=== PATIENT | male | born 1950 | race Caucasian/White ===

== ENCOUNTER 2016-12-09 18:35 | Inpatient (IN) ==
--- NOTE | 2016-12-09 19:09 | PROVIDER DOCUMENTATION ---
HPI-Respiratory General - General Chief Complaint: Cough Stated Complaint: SOB Time Seen by Provider: 12/09/16 18:56 Source: patient Allergies/Adverse Reactions: Patient Allergies Allergy/AdvReac Type Severity Reaction Status Date / Time No Known Allergies Allergy Verified 12/09/16 18:51 Home Medications: Home Medication List Medication Instructions Recorded Confirmed Last Taken Type Aspirin 81 tab PO DAILY 12/10/16 12/10/16 Unknown History Celecoxib [Celebrex] 200 mg PO BID 12/10/16 12/10/16 Unknown History Lisinopril 20 tab PO DAILY 12/10/16 12/10/16 Unknown History Simvastatin 10 tab PO DAILY PRN 12/10/16 12/10/16 Unknown History - History of Present Illness-Resp Nature of Presenting Problem: Pt is a 66 y/o male c chief complaint of cough and shortness of breath x 2 weeks. He was seen at an urgent care today and advised to go to the ER. Pt states his cough is worse in the morning and has become progressively worse. Pt has a h/o RA, HTN, CVA, HLD. Pt smokes cigarettes 1ppd normally but has been unable to smoke in the past 2 weeks due to SOB. Pt has had unintentional weight loss of 25lbs in the past month. Pt states he has been feeling fatigued. His shortness of breath improves when he sits down and relaxes. Review of Systems - Adult - REVIEW OF SYSTEMS - ADULT Constitutional: reports: fatique. denies: chills, fever Eyes: reports: no symptoms reported. denies: blurred vision, double vision Ears, Nose, Mouth & Throat: reports: no symptoms reported. denies: ear pain, nose pain, throat pain Cardiovascular: reports: no symptoms reported. denies: chest pain, orthopnea Respiratory: reports: cough, shortness of breath. denies: hemoptysis, pleurisy Gastrointestinal: reports: no symptoms reported. denies: abdominal pain, nausea , rectal bleeding Genitourinary: reports: no symptoms reported. denies: frequent UTI's, hematuria Musculoskeletal: reports: no symptoms reported. denies: bone pain, joint pain, muscle weakness Integumentary: reports: no symptoms reported. denies: itching, rash Neurological: reports: no symptoms reported. denies: numbness, paresthesia Psychiatric: reports: no symptoms reported. denies: anxiety, emotional problems Endocrine: reports: no symptoms reported. denies: cold intolerance, heat intolerance Hematologic/Lymphatic: reports: no symptoms reported. denies: blood clots, low blood count Allergic/Immunologic: reports: no symptoms reported. denies: allergic reactions , food allergy All Other Systems: Reviewed and Negative Past History - Adult - PAST MEDICAL HISTORY-ADULT Review of Records: reports: Old Records Reviewed, Nursing Assessment Review, Medications Reviewed, Social history reviewed & non-contributory. Major Childhood Illnesses: reports: denies history Cardiovascular: reports: denies history Respiratory: reports: denies history Gastrointestinal: reports: denies history Obstetrical/Gynecological: reports: denies history Genitourinary: reports: denies history Musculoskeletal: reports: denies history Neurological: reports: denies history Endocrine/Immune: reports: denies history Other Conditions: reports: denies history - FAMILY HISTORY Family History: reviewed, not pertinent Physical Exam-General - PHYSICAL EXAM-ADULT Initial Vital Signs Reviewed: Yes - CONSTITUTIONAL General Appearance: appears well, alert, no apparent distress - EYES Eyes: PERRL/EOMI, pink conjunctivae - HEAD, EARS, NOSE, MOUTH & THROAT HENMT: normocephalic/atraumatic, moist mucous membranes, normal ENT inspection - RESPIRATORY Respiratory: chest non-tender, wheezing - CARDIOVASCULAR Cardiovascular: normal peripheral pulses, regular rate, rhythm, no edema - GASTROINTESTINAL (ABDOMEN) Abdominal Exam: normal bowel sounds, non tender, soft - GENITOURINARY Female Genitalia/Pelvic Exam: deferred - LYMPHATIC Lymphatic: no adenopathy - MUSCULOSKELETAL Back Exam: normal inspection, no CVA tenderness, no vertebral tenderness Extremity: normal range of motion, non-tender, normal gait - SKIN Integumentary: normal color, normal turgor, warm/dry - NEUROLOGIC Neurologic: grossly normal, no motor/sensory deficits - PSYCHIATRIC Psych/Mental Status: normal mood/affect, normal thought content, normal thought process, oriented x 3 Progress - PLAN OF CARE/RESULTS Progress/Plan/Lab Results: Orders Category Date Time Status ANGIOGRAM/PULMONARY ARTERIES [CT] Stat Exams 12/09/16 21:21 Taken CHEST-2 VIEWS [RAD] Stat Exams 12/09/16 18:56 Taken ABG [RESP] Routine Lab 12/09/16 20:05 Completed BLOOD CULTURE [BLDCUL] Stat Lab 12/09/16 22:45 Ordered CBC WITH ELECTRONIC DIFF [HEME] Stat Lab 12/09/16 19:35 Completed CK PROFILE [SP CHEM] Stat Lab 12/09/16 19:35 Completed COMPREHENSIVE METABOLIC PANEL [CHEM] Stat Lab 12/09/16 19:35 [address] D-DIMER PL [COAG] Stat Lab 12/09/16 19:35 Completed MAGNESIUM [CHEM] Stat Lab 12/09/16 19:35 Completed PRO B-NATRIURETIC PEPTIDE Stat Lab 12/09/16 19:35 Completed [address]IME WITH INR PL [COAG] Stat Lab 12/09/16 19:[address] [COAG] Stat Lab 12/09/16 19:35 Completed TROPONIN T Stat Lab 12/09/16 19:35 Completed Albuterol 2.5MG/Ipratrop 0.5MG [Duoneb (A & A)] Med 12/09/16 22:46 Discontinued 6 ml INH NOW ONE Dexamethasone [Decadron] Med 12/09/16 22:46 Discontinued 10 mg IV NOW ONE Levofloxacin 750 mg/D5w [Levaquin 750 mg/D5w] 150 ml Med 12/09/16 22:46 Active IV NOW Aerosol Treatments Routine Oth 12/09/16 22:46 Active Aerosol Treatments Stat Oth 12/09/16 22:46 Active EKG [EKG] Stat Ther 12/09/16 18:56 Draft Laboratory Tests 12/09/16 12/09/16 12/09/16 19:35 19:35 19:35 WBC RBC Hgb Hct MCV MCH MCHC RDW Std Deviation Plt Count MPV Immature Gran % (Auto) Neut % (Auto) Lymph % (Auto) Monona % (Auto) Eos % (Auto) Baso % (Auto) Immature Gran # (Auto) Neut # (Auto) Lymph # (Auto) Mon[place] # (Auto) Eos # (Auto) Baso # (Auto) PT INR APTT (Factor Assay) D-Dimer Specimen Type Sample Site pH pCO2 pO2 HCO3 Base Excess Oxyhemoglobin ABG O2 Sat (Calculated) ABG O2 Saturation ABG Carboxyhemoglobin ABG Methemoglobin Moisés Test A-a O2 Difference Total Hemoglobin Lactate Blood Gas Modality FiO2 % Sodium 134 L Potassium 5.2 H Chloride 98 Carbon Dioxide 22 L Anion Gap 14 BUN 13 Creatinine 0.9 Estimated GFR/1.73 m2 > 60 BUN/Creatinine Ratio 14 Glucose 99 Calculated Osmolality 268 Calcium 9.9 Magnesium 2.1 Total Bilirubin 0.40 AST 17 ALT 7 L Alkaline Phosphatase 75 Creatine Kinase 24 Troponin T < 0.010 [id number] Pept 461 H Total Protein 8.7 H Albumin 3.4 L Globulin 5.0 Albumin/Globulin Ratio 1.0 12/09/16 12/09/16 12/09/16 19:35 19:35 20:05 WBC 7.64 RBC 5.13 Hgb 14.4 Hct 44.7 MCV 87.1 MCH 28.1 MCHC 32.2 L RDW Std Deviation 14.8 H Plt Count 436 H MPV 8.5 Immature Gran % (Auto) 0.1 Neut % (Auto) 73.0 Lymph % (Auto) 16.2 L Monona % (Auto) 6.7 Eos % (Auto) 3.5 Baso % (Auto) 0.5 Immature Gran # (Auto) 0.01 Neut # (Auto) 5.57 Lymph # (Auto) 1.24 Monona # (Auto) 0.51 Eos # (Auto) 0.27 Baso # (Auto) 0.04 PT 15.0 INR 1.15 APTT (Factor Assay) 32.3 D-Dimer > 20.00 H Specimen Type ARTERIAL Sample Site L RADIAL pH 7.46 H pCO2 32 L pO2 52 L HCO3 24.4 Base Excess -0.3 Oxyhemoglobin 87.5 L* ABG O2 Sat (Calculated) 16.8 ABG O2 Saturation 91.0 L ABG Carboxyhemoglobin 2.70 H ABG Methemoglobin 1.1 Moisés Test YES A-a O2 Difference 58.0 Total Hemoglobin 13.7 Lactate 1.00 Blood Gas Modality ROOM AIR FiO2 % 21.0 Sodium Potassium Chloride Carbon Dioxide Anion Gap BUN Creatinine Estimated GFR/1.73 m2 BUN/Creatinine Ratio Glucose Calculated Osmolality Calcium Magnesium Total Bilirubin AST ALT Alkaline Phosphatase Creatine Kinase Troponin T [id number] Pept Total Protein Albumin Globulin Albumin/Globulin Ratio Vital Signs - 24 hr 12/09/16 12/09/16 18:36 22:15 Temperature 98.4 F Pulse Rate 115 H 117 H Respiratory 17 28 H Rate Blood Pressure 154/85 147/90 O2 Sat by Pulse 95 95 Oximetry - XRAY 1 XRAY Study: Chest Impression: Abnormal XRAY Interpretation: diffuse interstitial edema, fibrotic changes, multiple infiltrates - CT/MRI 1 CT Study: Thorax Impression: Abnormal (No PE, enlarged mediastinal nodes. Increased interstitial markings could be fibrosis, pneumonia, or a combo of the two, small L effusion - radiology report) - CONSULTS/PCP/HOSPITALIST Notification #1 *Consult/PCP/Hospitalist*: Dr. Mayen (Hospitalist) Time Discussed: 23:00 Reason/Comments: Admit. agree c orders Departure - Departure Time of Disposition Order: 22:46 DIAGNOSIS: Pulmonary fibrosis Pneumonia Qualifiers: Pneumonia type: due to unspecified organism Laterality: bilateral Lung location : unspecified part of lung Qualified Code(s): J18.9 - Pneumonia, unspecified organism Disposition: ADMITTED INPATIENT 09 Certified Medical Emergency: Emergent Condition: Stable Attestation - Physician/ TREY Attestation Patient care was provided by Advanced Practice Provider:: Yes Advanced Practice Provider:: Pantera Degroot Advanced Practice Provider documentation review:: The Mid-level provider documentation, treatment plan and medical decision making was reviewed by the physician who agrees with all treatment and medical decision making by the P.
[2016-12-09 19:41] LABS: MANUAL DIFF NEEDED? NO
[2016-12-09 19:44] LABS: BASO% 0.5 % (0.0-0.8); EOS# 0.27 X1000 (0.0-0.7); EOS% 3.5 % (0.0-10.0); HEMATOCRIT 44.7 % (42.0-52.0); HEMOGLOBIN 14.4 g/dL (14.0-18.0); IMM GRAN# 0.01 X1000 (0.0-0.04); IMM GRAN% 0.1 % (0.0-0.5); LYMPH# 1.24 X1000 (1.2-3.4); LYMPH% 16.2 % (20.5-51.1); MCH 28.1 PG (27-31); MCHC 32.2 g/dL (33-37); MCV 87.1 FL (81-99); MONO# 0.51 X1000 (0.11-0.59); MONO% 6.7 % (1.7-9.3); MPV 8.5 FL (7.4-10.4); PLT 436 X1000 (130-400); RBC 5.13 XMIL (4.7-6.1)
[2016-12-09 19:58] LABS: AGAP 14; ALBUMIN 3.4 g/dL (3.5-5.0); ALKALINE PHOSPHATASE 75 U/L (32-122); BUN 13 mg/dL (8-22); CALCIUM 9.9 mg/dL (8.8-10.2); CHLORIDE 98 mmol/L (98-107); CK PROFILE 24 U/L (24-204); COSMO 268; GOT 17 U/L (10-34); GPT 7 U/L (10-44); MAGNESIUM 2.1 mg/dL (1.5-2.7); POTASSIUM 5.2 mmol/L (3.5-5.1); SODIUM 134 mmol/L (136-145); TCO2 22 mmol/L (25-35); TOTAL PROTEIN 8.7 g/dL (6.3-8.3)
[2016-12-09 20:05] LABS: INR 1.15 (0.86-1.15); PTT PL 32.3 Seconds (22.6-43.9)
[2016-12-09 20:21] LABS: BE -0.3 mmoll (-3.0-3.0); BLOOD TYPE ARTERIAL; DRAW SITE L RADIAL; METHB 1.1 % (0.0-1.5); O2(CT) 16.8 mL/dL (15.0-23.0); PCO2(98.6) 32 mmHg (35-45); PO2(98.6) 52 mmHg (60-100); SAMPLE BLOOD; THB 13.7 g/dL (11.5-17.4); pH(98.6) 7.46 (7.35-7.45)
--- NOTE | 2016-12-09 20:22 | EKG Report ---
Test Performed on : 12/09/2016 8:05:42 PM Test Reason : CHEST PAIN Blood Pressure : / mmHG Vent. Rate : 112 BPM Atrial Rate : 112 BPM P-R Int : 148 ms QRS Dur : 096 ms QT Int : 330 ms P-R-T Axes : 031 -36 011 degrees QTc Int : 450 ms Sinus tachycardia. Left axis deviation Abnormal ECG No previous ECGs available Unconfirmed Result
[2016-12-09 20:24] LABS: ALLEN TEST YES; MODALITY ROOM AIR
[2016-12-09] MEDS ORDERED: DUONEB (A & A) INH ONE (22:46)
[2016-12-09] MEDS ORDERED: LEVAQUIN 750 MG/D5W 150 ML IV ONE (22:46)
[2016-12-09] MEDS ORDERED: DECADRON IV ONE (22:46)
[2016-12-10] MEDS: NS 1,000 ML IV SCH ×2 (01:07→21:01)
--- NOTE | 2016-12-10 01:08 | Diag Imaging Result Document ---
PROCEDURE NAME: ANGIOGRAM/PULMONARY ARTERIES - 12/09/2016 STUDY: CT chest with intravenous contrast. Motion degrades image quality. The heart is enlarged. There is a tiny left effusion. There are multiple enlarged mediastinal and hilar lymph nodes. No thoracic aortic aneurysm or dissection. Normal opacification of the pulmonary arteries and their proximal branches. The distal branches are poorly opacified. There are increased interstitial markings diffusely in the lungs with small peripheral cysts. IMPRESSION: 1. No pulmonary emboli identified. 2. Multiple enlarged mediastinal and hilar lymph nodes. 3. Increased interstitial markings which may represent fibrosis or pneumonia or a combination of the two. 4. Cardiomegaly with a small left effusion. A preliminary report was given at 10:12 p.m.
--- NOTE | 2016-12-10 07:46 | Diag Imaging Result Document ---
PROCEDURE NAME: CHEST-2 VIEWS - 12/09/2016 FRONTAL AND LATERAL CHEST, TWO VIEWS: FINDINGS: There are increased interstitial markings diffusely in both lungs. The findings are most pronounced in the periphery of the mid lungs and in the lung bases. Heart is borderline mildly prominent. Questionable tiny effusions. IMPRESSION: Diffuse increased interstitial markings likely represent a combination of fibrosis and pneumonia.
[2016-12-10] MEDS ORDERED: ZOFRAN IV PRN (13:48)
[2016-12-10] MEDS ORDERED: DUONEB (A & A) INH PRN (13:49)
[2016-12-10] MEDS: DUONEB (A & A) INH SCH ×3 (15:37→23:12)
--- NOTE | 2016-12-10 17:30 | Extremity Venous Study ---
PROCEDURE NAME: Venous U/S Bilateral Legs - 12/10/2016 BILATERAL LOWER EXTREMITY VENOUS DOPPLER ULTRASOUND: FINDINGS: RIGHT: There is good flow and compressibility in the veins of the right lower extremity. No thrombus. Normal augmentation. LEFT: There is good flow and compressibility in the veins of the left lower extremity. No thrombus. Normal augmentation. IMPRESSION: No evidence of deep venous thrombosis within either lower extremity.
[2016-12-10] MEDS: SOLU-MEDROL IV SCH ×2 (20:27→22:53)
[2016-12-10] MEDS: LEVAQUIN 750 MG/D5W 150 ML IV SCH (22:53)
[2016-12-11] MEDS: DUONEB (A & A) INH SCH ×5 (03:26→20:01)
[2016-12-11] MEDS: SOLU-MEDROL IV SCH ×3 (06:04→22:04)
[2016-12-11 06:49] LABS: HEMATOCRIT 38.1 % (42.0-52.0); HEMOGLOBIN 12.1 g/dL (14.0-18.0); MCH 27.8 PG (27-31); MCHC 31.8 g/dL (33-37); MCV 87.6 FL (81-99); MPV 9.1 FL (7.4-10.4); RBC 4.35 XMIL (4.7-6.1)
[2016-12-11 07:05] LABS: AGAP 13; BUN 15 mg/dL (8-22); CHLORIDE 98 mmol/L (98-107); COSMO 272; POTASSIUM 4.3 mmol/L (3.5-5.1); SODIUM 134 mmol/L (136-145); TCO2 24 mmol/L (25-35)
[2016-12-11] MEDS: ASPIRIN PO SCH (08:57)
[2016-12-11] MEDS: PRINIVIL PO SCH (08:57)
[2016-12-11] MEDS: LOVENOX SUBQ SCH (08:58)
[2016-12-11] MEDS: NS 1,000 ML IV SCH (13:03)
--- NOTE | 2016-12-11 13:14 | HISTORY AND PHYSICAL ---
CHIEF COMPLAINT: Cough, shortness of breath x2 weeks. HISTORY OF PRESENT ILLNESS: This is a 66-year-old male with a history of hypertension, CVA, high cholesterol, rheumatoid arthritis, hyperlipidemia, and continued nicotine use. He presented to the emergency room complaining of greater than 2 weeks of nonproductive cough and shortness of breath. He stated his cough is worse in the morning on 1st waking. Over the last week it has gotten progressively worse throughout the day. He also reports an unintentional weight loss of 25 pounds in the last month accompanying by general weakness and fatigue. He does state that his shortness of breath increases with movement and it does decrease somewhat when he rests. He denies any chest pain, palpitations, PND, or orthopnea. He denies any prior treatment. Chest x- ray revealed diffuse interstitial markings that likely represent a combination of fibrosis and pneumonia. He was found to have a D-dimer of 20. Therefore, a CTA pulmonary was performed which revealed no pulmonary emboli. Multiple enlarged mediastinal and hilar lymph nodes. Increased interstitial markings that may represent fibrosis or pneumonia or a combination of the 2. Cardiomegaly with a small effusion. Lower extremity Doppler was performed which revealed no evidence of DVT in either extremity. Blood cultures were obtained. He was given Levaquin in the emergency room and he was admitted for further evaluation and treatment. PAST MEDICAL HISTORY: Hypertension, prior CVA, hyperlipidemia, rheumatoid arthritis. PAST SURGICAL HISTORY: Denies. SOCIAL HISTORY: He smokes about a pack to 2 packs a day. He denies alcohol or illicit drug use. ALLERGIES: No known drug allergies. HOME MEDICATIONS: Aspirin 81 mg, simvastatin 10 daily, lisinopril 20, Celebrex 200 b.i.d. REVIEW OF SYSTEMS: A 14 point review of systems is discussed with patient with pertinent positives stated in the HPI. He denies chest pain, palpitations, syncope, dizziness, PND, orthopnea, change in vision, any fever, chills, night sweats, nausea, vomiting, diarrhea, constipation, black or bloody vomitus, black or bloody stools, hematuria, dysuria, frequency, urgency. PHYSICAL EXAMINATION: GENERAL: This is a 66-year-old male who comes in with 2 weeks of a cough that has increased over the past few days. VITAL SIGNS: Blood pressure is 120/68 with a heart rate of 90, respirations are 20, temperature is 97.9 degrees oral with oxygen saturations of 96 to 100% on 2 L. HEENT: Head is normocephalic, atraumatic. Pupils equal, round, react to light. EOMs are intact. Sclerae anicteric. Mucous membranes are moist. NECK: Supple. Trachea midline. CARDIOVASCULAR: Regular rate and rhythm. S1 and S2 appreciated. PULMONARY: He does have some scattered wheezing throughout with no increased work of breathing noted. Chest does rise and fall symmetrically with respiration. GASTROINTESTINAL: Abdomen is soft, nontender, nondistended. Bowel sounds in all 4 quadrants. BACK: No CVAT. No spine tenderness. MUSCULOSKELETAL: Good range of motion of joints. NEUROLOGIC: He is alert and oriented x3. EXTREMITIES: No clubbing, cyanosis, or edema. Pulses are palpable x4. Calves are nontender. DIAGNOSTICS: WBC is 7.6 with a hemoglobin of 14.4, hematocrit 44.7, and platelets of 436,000. D- dimer is greater than 20. Sodium is 134, potassium 5.2, BUN 13, creatinine 0.9, with a glucose of 99. Troponin is less than 0.010. Chest x-ray, pulmonary arteriogram, and lower extremity Dopplers are noted in the HPI. ASSESSMENT: 1. Pneumonia, bilateral. 2. Pulmonary fibrosis. 3. Hypertension. 4. Prior cerebrovascular accident. 5. Rheumatoid arthritis. 6. Nicotine abuse. PLAN: He will be admitted to the hospital. Placed on telemetry. Blood cultures were drawn in the emergency room. He was given Levaquin. We will continue Levaquin daily. If cultures return positive antibiotics may be changed according to sensitivities. We will give steroids to taper with incentive spirometer. We will give gentle IV hydration. We will identify his home medications and continue as appropriate. We will trend labs daily. For DVT prophylaxis, we will give Lovenox prophylactically. For GI prophylaxis, Prilosec. Further treatments pending hospital course. Dictated by JACKIE Pinon for Stanley Mayen MD
--- NOTE | 2016-12-11 15:33 | PROGRESS NOTE ---
DATE: 12/11/2016 SUBJECTIVE: The patient states that he feels like he is breathing better. He denies any chest pain or palpitations. He still has some shortness of breath with activity. Room air saturations continue to be 88% to 91%. OBJECTIVE: Vital Signs: Blood pressure is 145/79 with a heart rate of 87, respirations are 18, temperature is 97.9 degrees, with oxygen saturations of 97% to 98% on 2 to 3 liters nasal cannula. Cardiovascular: Regular rate and rhythm. S1 and S2 appreciated. Pulmonary: Breath sounds continue with scattered wheezes and rhonchi that fairly clear to cough. No increased work of breathing noted. Gastrointestinal: The abdomen is soft, nontender, nondistended, with bowel sounds in all 4 quadrants. Back: No CVAT. No spine tenderness. Musculoskeletal: Good range of motion to joints. Neurologic: He is alert and oriented x3. Cranial nerves 2 through 12 grossly intact. Extremities: No clubbing, cyanosis, or edema. Pulses are palpable. Calves are nontender. LABORATORIES: WBC is 10.9, with a hemoglobin of 12.1, hematocrit 38.1, and platelets of 338,000. Sodium is 134, potassium 4.3, BUN 15, creatinine 0.9, with glucose of 151. Blood cultures are still pending. ASSESSMENT: 1. Bilateral pneumonia. 2. Pulmonary fibrosis. 3. Hypertension. 4. Prior cerebrovascular accident. 5. Rheumatoid arthritis. 6. Leukocytosis. PLAN: We will continue with his current regimen with DuoNeb treatments every 4 hours. Continue Levaquin, this is day 3. We will continue to wean steroids. Dictated by JACKIE Pinon for Jin Phelan MD pt examined, agree with above, will likely need home o2, is visibly dyspneic with exertion, may need 1-2 days of tx APENOT MTDD
[2016-12-11] MEDS: LEVAQUIN 750 MG/D5W 150 ML IV SCH (22:09)
[2016-12-12] MEDS: DUONEB (A & A) INH SCH ×7 (01:14→23:10)
[2016-12-12] MEDS: NS 1,000 ML IV SCH (02:50)
[2016-12-12] MEDS: PRILOSEC PO SCH (06:13)
[2016-12-12] MEDS: SOLU-MEDROL IV SCH ×3 (06:14→16:43)
[2016-12-12 06:36] LABS: HEMATOCRIT 36.6 % (42.0-52.0); HEMOGLOBIN 11.4 g/dL (14.0-18.0); MCH 27.5 PG (27-31); MCHC 31.1 g/dL (33-37); MCV 88.4 FL (81-99); MPV 9.3 FL (7.4-10.4); RBC 4.14 XMIL (4.7-6.1)
[2016-12-12 06:51] LABS: AGAP 9; BUN 17 mg/dL (8-22); CHLORIDE 100 mmol/L (98-107); COSMO 270; MAGNESIUM 1.8 mg/dL (1.5-2.7); POTASSIUM 3.7 mmol/L (3.5-5.1); SODIUM 133 mmol/L (136-145); TCO2 24 mmol/L (25-35)
[2016-12-12] MEDS: PRINIVIL PO SCH (08:48)
[2016-12-12] MEDS: LOVENOX SUBQ SCH (08:48)
[2016-12-12] MEDS: ASPIRIN PO SCH (08:48)
[2016-12-12] MEDS: KLONOPIN PO PRN ×2 (15:41→22:49)
--- NOTE | 2016-12-12 16:16 | PROGRESS NOTE ---
DATE: 12/12/2016 SUBJECTIVE: The patient has no focal complaints except he just has difficult to breathing with any exertion. He tends to get very short of breath when he gets his steroids, but I am not sure if that is not just some sort of anxiety. OBJECTIVE: Vital signs: Blood pressure 120/62, heart rate 94, respiratory rate 18, temperature 97.4 degrees, 93% on 2 L. General: In mild respiratory distress. HEENT: Pupils equal, round, reactive to light. Skin: Showed telangiectasias on his face. Neck: Was supple. Cardiovascular: Was tachy. No murmurs, gallops, or rubs. No LV heave. Pulmonary: He has some occasional end-expiratory wheezes but he has rales throughout his lower lung baez, mid to lower lung baez, and definitely increased respiratory effort on exam. GI: Soft, nontender, nondistended. Bowel sounds are positive. Extremities: No clubbing or cyanosis. No peripheral edema. He has clubbing noted on his digital exam. LABORATORY DATA: Sodium is 133. White count 15, hemoglobin and hematocrit are 11 and 36, platelets of 329,000. ASSESSMENT AND PLAN: 1. Chronic obstructive pulmonary disease exacerbation. Continue breathing treatments. He may have a component of IPF. We will continue steroids, antibiotics, breathing treatments. We will add Advair. I am going to try to get pulmonary function test and follow clinically. 2. Hypertension. Continue his regular medications and follow. 3. Disposition. Pending his clinical course. We are trying to attempt to get a pulmonary evaluation. Will continue to follow.
[2016-12-12] MEDS: ADVAIR 250/50 DISKUS INH SCH (19:29)
[2016-12-12] MEDS: LEVAQUIN 750 MG/D5W 150 ML IV SCH (22:43)
[2016-12-13] MEDS: NS 1,000 ML IV SCH ×2 (00:02→02:24)
[2016-12-13] MEDS ORDERED: SOLU-MEDROL IV SCH ×3 (03:00→10:44)
[2016-12-13] MEDS: DUONEB (A & A) INH SCH ×4 (03:20→15:30)
[2016-12-13] MEDS: PRILOSEC PO SCH (06:07)
[2016-12-13 06:21] LABS: HEMOGLOBIN 11.3 g/dL (14.0-18.0); MCH 27.2 PG (27-31); MCHC 30.5 g/dL (33-37); MCV 88.9 FL (81-99); MPV 9.1 FL (7.4-10.4); RBC 4.16 XMIL (4.7-6.1)
[2016-12-13 06:44] LABS: AGAP 7; BUN 22 mg/dL (8-22); CALCIUM 8.8 mg/dL (8.8-10.2); CHLORIDE 105 mmol/L (98-107); COSMO 283; POTASSIUM 4.1 mmol/L (3.5-5.1); SODIUM 139 mmol/L (136-145); TCO2 27 mmol/L (25-35)
[2016-12-13] MEDS: ADVAIR 250/50 DISKUS INH SCH (07:34)
[2016-12-13] MEDS: LOVENOX SUBQ SCH (10:19)
[2016-12-13] MEDS: PRINIVIL PO SCH (10:19)
[2016-12-13] MEDS: KLONOPIN PO PRN ×2 (10:19→18:48)
[2016-12-13] MEDS: ASPIRIN PO SCH (10:19)
[2016-12-13] MEDS: SOLU-MEDROL IV SCH ×2 (10:20)
[2016-12-13 10:24] LABS: BE 4.2 mmoll (-3.0-3.0); BLOOD TYPE ARTERIAL; DRAW SITE R RADIAL; METHB 0.8 % (0.0-1.5); O2(CT) 13.9 mL/dL (15.0-23.0); PCO2(98.6) 40 mmHg (35-45); SAMPLE BLOOD; SAO2 79.6 % (95.0-100.0); THB 12.8 g/dL (11.5-17.4); pH(98.6) 7.46 (7.35-7.45)
[2016-12-13 10:49] LABS: MODALITY VENTIMASK
--- NOTE | 2016-12-13 11:14 | Diag Imaging Result Document ---
PROCEDURE NAME: CHEST-PORTABLE - 12/13/2016 CHEST, SINGLE VIEW: INDICATION: Hypoxia. COMPARISON: 12/09/2016. FINDINGS: There is increasing bilateral interstitial and alveolar opacity compatible with superimposed alveolar infiltrates on a background of parenchymal fibrosis. The findings have increased when compared with the prior study suggesting superimposed pulmonary edema or bilateral pneumonia. There is cardiomegaly. IMPRESSION: Worsening bilateral air space disease and effusion suggesting pneumonia or pulmonary edema superimposed on parenchymal fibrosis.
[2016-12-13 11:18] LABS: ALLEN TEST YES
[2016-12-13] MEDS: LASIX IV SCH ×2 (13:31→22:30)
--- NOTE | 2016-12-13 14:17 | PROGRESS NOTE ---
DATE: 12/13/2016 SUBJECTIVE: The patient has no focal complaints except worsening shortness of breath. He feels like he is just getting worse over the last several days. He feels the steroids are not helping. He just feels much more short of breath. OBJECTIVE: Blood pressure 122/66, heart rate 93, respiratory 18, temperature 97.4 degrees, saturation 93%. He has dropped as low as 78%. He is on non-rebreather now at 93%.Cardiovascular: Regular rate and rhythm. Pulmonary: Rales at the bases. Diminished breath sounds at the bases. Increased work of breathing. Cardiovascular: Tachycardic. No LV heave. Gastrointestinal: Soft, nontender, nondistended. Bowel sounds are positive. No tenderness to palpation. 2+ DP pulses. HEENT: Pupils equal, round, and reactive to light. He has telangiectasias. PROBLEM LIST: 1. Acute respiratory failure. May be multifactorial now. This may be IPS and chronic obstructive pulmonary disease, but there may be a component of volume overload or congestive heart failure. We will try diuretics. The patient is very reluctant to continue any steroids. He is on antibiotics. I have added Advair. He is not stable enough to get PFTs. I think he needs a pulmonary evaluation, so we are in the process of transferring him to [facility] for pulmonary evaluation. 2. Hypertension. Continue medications. We will pursue echo to rule out CHF. DISPOSITION: Pending his clinical course. Pt 's abg shows significant hypoxia will start bipap and trasnfer to ICU , > 30 minute cc time for resp failure on bipap [facility]II[facility]NE[facility] MEDICAL CENTERFariha
[2016-12-13] MEDS: ATIVAN IV PRN (20:29)
[2016-12-13] MEDS ORDERED: MORPHINE IV ONE (22:36)
[2016-12-14] MEDS: DUONEB (A & A) INH SCH ×8 (00:19→23:51)
[2016-12-14] MEDS: LASIX IV SCH ×2 (00:40→12:23)
[2016-12-14 00:44] LABS: ALLEN TEST YES; BE 11.3 mmoll (-3.0-3.0); BLOOD TYPE ARTERIAL; DRAW SITE R RADIAL; METHB 1.4 % (0.0-1.5); O2(CT) 21.4 mL/dL (15.0-23.0); PCO2(98.6) 41 mmHg (35-45); PO2(98.6) 80 mmHg (60-100); SAMPLE BLOOD; SAO2 98.7 % (95.0-100.0); THB 15.9 g/dL (11.5-17.4); pH(98.6) 7.54 (7.35-7.45)
[2016-12-14] MEDS: ATIVAN IV PRN (00:44)
[2016-12-14 00:45] LABS: MODALITY BI PAP
[2016-12-14] MEDS: LEVAQUIN 750 MG/D5W 150 ML IV SCH ×2 (00:45→23:38)
[2016-12-14] MEDS: MORPHINE IV PRN (02:28)
[2016-12-14] MEDS: ADVAIR 250/50 DISKUS INH SCH ×2 (03:41→08:09)
[2016-12-14 05:23] LABS: ALLEN TEST YES; BE 9.8 mmoll (-3.0-3.0); BLOOD TYPE ARTERIAL; DRAW SITE R RADIAL; METHB 1.2 % (0.0-1.5); O2(CT) 24.2 mL/dL (15.0-23.0); PO2(98.6) 161 mmHg (60-100); SAMPLE BLOOD; SAO2 99.9 % (95.0-100.0); THB 17.5 g/dL (11.5-17.4); pH(98.6) 7.45 (7.35-7.45)
[2016-12-14 05:24] LABS: MODALITY BI PAP; PCO2(98.6) 52 mmHg (35-45)
[2016-12-14 05:56] LABS: HEMATOCRIT 46.1 % (42.0-52.0); HEMOGLOBIN 14.6 g/dL (14.0-18.0); MCH 27.8 PG (27-31); MCHC 31.7 g/dL (33-37); MCV 87.8 FL (81-99); MPV 9.5 FL (7.4-10.4); RBC 5.25 XMIL (4.7-6.1)
[2016-12-14 06:02] LABS: AGAP 12; BUN 25 mg/dL (8-22); CALCIUM 9.6 mg/dL (8.8-10.2); CHLORIDE 92 mmol/L (98-107); COSMO 277; POTASSIUM 4.3 mmol/L (3.5-5.1); SODIUM 136 mmol/L (136-145); TCO2 32 mmol/L (25-35)
[2016-12-14] MEDS: PRILOSEC PO SCH (06:40)
[2016-12-14] MEDS: PRINIVIL PO SCH (09:54)
[2016-12-14] MEDS: ASPIRIN PO SCH (09:54)
[2016-12-14] MEDS: LOVENOX SUBQ SCH (09:54)
--- NOTE | 2016-12-14 10:29 | Diag Imaging Result Document ---
PROCEDURE NAME: CHEST-PORTABLE - 12/14/2016 PORTABLE CHEST X-RAY: COMPARISON: 12/13/2016. FINDINGS: Stable significant, coarse peripheral interstitial opacity suggesting fibrosis. Stable cardiomegaly and pulmonary vascular congestion. No new infiltrates. IMPRESSION: No significant change from prior.
--- NOTE | 2016-12-14 12:05 | PROGRESS NOTE ---
DATE: 12/14/2016 SUBJECTIVE: A 66-year-old who had presented with cough, shortness of breath for 2 weeks. He has a history of hypertension, CVA, history of hypercholesterolemia, rheumatoid arthritis, hyperlipidemia, and continued nicotine use. He presented to the emergency room complaining of greater than 2 weeks of nonproductive cough, shortness of breath. He states his cough is worse in the morning when he first wakes. Over the last week, he has gotten progressively worse throughout the day. He also reports some intentional weight loss of 25 pounds in the last month. Continues with general weakness and fatigue. He does state that his shortness of breath increases with movement and does decrease somewhat when he rests. He denies any chest pain, palpitations, PND, orthopnea. Denied any prior treatment. Chest x-ray revealed diffuse interstitial markings that likely represent a combination of fibrosis and pneumonia. Found to have a D-dimer of 20; therefore, CTA of pulmonary artery was performed which revealed no pulmonary emboli, multiple enlarged mediastinal hilar lymph nodes, increased interstitial markings that represented fibrosis or pneumonia or a combination of the two. Cardiomegaly with small effusion. Lower extremity Doppler performed revealed no evidence of DVT, lower extremity. Blood cultures were obtained. He was given Levaquin in the emergency room, admitted for further treatment, and he was transferred from [place] to here. PAST MEDICAL HISTORY: Hypertension, prior CVA, hyperlipidemia, rheumatoid arthritis. SOCIAL HISTORY: He smokes about 2 packs a day, denies alcohol or illicit drugs. OBJECTIVE: General: This morning, he is in wrist restraints as he keeps trying to pull off his BiPAP. Vital signs: He is on 100% with BiPAP to keep the sats above 90. Temp is 98.6, pulse 100, respirations 35, blood pressure 128/81. HEENT: Pupils are equal and round. Neck: CVP less than 6 cm. Lungs: Clear. Decreased breath sounds both bases. Cardiovascular: Regular rhythm and rate without murmur or S3. Abdomen: Soft. Skin: Warm and dry. Urine output was 4-5 L. LAB: White count 10,850, hematocrit 46, platelet count 353,000. Chemistry: Sodium 136, potassium 4.3, chloride 92, bicarb 32, BUN 25, creatinine 1.0. Blood sugars 135, 108. ProBNP was 2513. Note it was only 461 on the . Looking at his pulmonary arteriogram, no pulmonary emboli identified, multiple enlarged mediastinal and hilar lymph nodes, increased interstitial markings represented fibrosis or pneumonia, cardiomegaly, and small left pleural effusion. ASSESSMENT AND PLAN: 1. Acute respiratory failure, may be multifactorial. Looks like he has pulmonary fibrosis and chronic COPD. Will ask Pulmonary to evaluate. I think diuretics are tried, and I believe he is on Advair, steroid, inhalers at the present time and he is requiring BiPAP. 2. Hypertension. Blood pressures have fluctuated. Based on his lab, he is getting Lasix 40 mg q.12 h. Creatinine had bumped up a little bit. I am going to stop the Lasix now and see what Pulmonary thinks. I think that Dr. Chilel will see this morning. He is on lisinopril 20 mg daily and Levaquin 250 mg q.24 h. I do not know that there is any evidence of infection. Prilosec 20 mg a day, fluticasone one puff b.i.d.
[2016-12-14] MEDS: MAXIPIME 1 GM/NS 50 ML IV SCH (12:41)
--- NOTE | 2016-12-14 15:55 | CONSULTATION ---
DATE OF CONSULTATION: 12/14/2016 PULMONARY CRITICAL CARE CONSULTATION: REFERRING PHYSICIAN: Dr. Mayen. Thank you very much for asking me to see this very unfortunate, very pleasant 66 -year-old male, white. I am pleased to assist in his care. DIAGNOSES: 1. Right-sided pneumonia with hilar adenopathy in the setting of cigarette smoking, community acquired pneumonia versus aspiration versus postobstructive pneumonia is my differential diagnosis. 2. Chronic obstructive pulmonary disease. 3. History of old cerebrovascular accident. 4. History of rheumatoid arthritis. RECOMMENDATIONS: He will be given cefepime in addition to the Levaquin. We will monitor his work of breathing and determine if there is a clearing. Ultimately if he does not clear with reference to the hilar adenopathy on the CAT scan, he may need a fiberoptic bronchoscopy to rule out a neoplasm. We will follow closely along with you. HISTORY: This very pleasant, 66-year-old male, white, presents to [facility] Emergency Room with fever, chills, cough, no hemoptysis, some yellowish sputum production, some weight loss, he had approximately 20 pounds over the last 3 months. He subsequently is found on CAT scan to have an infiltrate as well as a hilar adenopathy. He is admitted to the ICU and I am consulted to assist in his care. He is a smoker of approximately 40 pack-year history. REVIEW OF SYSTEMS: Except for the features mentioned above, are negative for weight loss, night sweats, weakness, or anorexia. No ENT symptoms of odynophagia, dysphagia, epistaxis or painful swallowing. No eye symptoms of blindness, blurring, diplopia. No other cardiac or pulmonary symptoms other than mentioned. No nausea vomiting, constipation, diarrhea. No hematuria, polyuria, nocturia, dysuria. No joint or muscle pain stiffness or swelling. No skin rashes, itching, bruises. No seizures, loss of consciousness or paralysis. Except for the features mentioned above, all other symptoms on the review of systems are negative. PAST MEDICAL HISTORY: Positive for the features mentioned above. FAMILY HISTORY: Noncontributory. PHYSICAL EXAMINATION: Vital Signs: This gentleman has a blood pressure of 105/ 86, with a pulse 105, respiration 26, temperature 98.3 degrees. HEENT/Neck: Exam reveals no thyromegaly or adenopathy. Pupils are equal and reactive. Extraocular muscles are intact. Neck is supple. No bruits. No JVD. Nonicteric. Chest: Reveals inspiratory crackles in the right base with some prolongation of the expiratory phase. There is forced expiratory wheezes and rhonchi. Cardiac: Exam reveals a regular rhythm with a tachycardia. No murmur or rub. Abdomen: Soft, nontender. No hepatosplenomegaly. Extremities: Reveal no evidence of cyanosis, clubbing. Skin: Warm and dry. Neurologically: He is grossly nonfocal, awake, moves all four. DIAGNOSTIC DATA: The chest radiograph shows a right-sided pleural effusion with infiltrate, and the CAT scan demonstrates that there is some hilar adenopathy and a pleural effusion. The white count is 10,800, with a hemoglobin 14.6, hematocrit 46.5, and platelets of 353, 000. The ABG shows a 7.45 pH, with a 52 CO2, and 161 O2. The sodium is 136, potassium 4.5, chloride 92, CO2 32, BUN of 25, creatinine 1.0, and glucose 105. [facility]
[2016-12-15] MEDS: MAXIPIME 1 GM/NS 50 ML IV SCH ×3 (00:28→23:28)
[2016-12-15] MEDS: LASIX IV SCH (00:28)
--- NOTE | 2016-12-15 03:11 | ECHO REPORT ---
ORDER DATE: 12/14/2016 MEASUREMENTS: Left ventricular end-diastolic diameter 3.6, end-systolic diameter 2.6, septal thickness 1.4, posterior wall thickness 1.4, left atrium 4.1, aortic root 3.5. SUMMARY: 1. Technically difficult study due to limited acoustic window quality. 2. Aortic valve was trileaflet without structural abnormality and opens normally on 2-dimensional images. Mitral and tricuspid valves are without structural abnormality with mild tricuspid regurgitation. Pulmonic valve was not well demonstrated with mild pulmonic insufficiency. Estimated systolic PA pressure by Doppler is approximately 50 mmHg. Aortic root is normal size. 3. Normal left ventricular chamber size with mild concentric left hypertrophy is suggested. Estimated left ejection fraction is approximately 60-65%. Regional wall motion analysis is challenging given limitations of study. Dopplers suggests grade 1 left ventricular diastolic dysfunction (impaired by relaxation). Left atrium is mildly enlarged. Right atrium and right ventricle are normal size grossly with preserved right ventricular systolic performance. 4. No pericardial effusion. 5. Appearance of inferior vena cava suggests normal central venous pressure. CONCLUSIONS: 1. Technically difficult study. 2. Mild mitral regurgitation with moderate pulmonary hypertension by Doppler. 3. Mild concentric left hypertrophy with estimated left ventricular ejection fraction of 60-65%. 4. Doppler suggests grade 1 left ventricular diastolic dysfunction. 5. Mild left atrial enlargement.
[2016-12-15] MEDS: DUONEB (A & A) INH SCH ×6 (04:03→23:38)
[2016-12-15 04:49] LABS: ALLEN TEST YES; BE 10.2 mmoll (-3.0-3.0); BLOOD TYPE ARTERIAL; DRAW SITE R RADIAL; METHB 1.1 % (0.0-1.5); O2(CT) 21.5 mL/dL (15.0-23.0); PCO2(98.6) 46 mmHg (35-45); PO2(98.6) 140 mmHg (60-100); SAMPLE BLOOD; SAO2 100.4 % (95.0-100.0); THB 15.6 g/dL (11.5-17.4); pH(98.6) 7.49 (7.35-7.45)
[2016-12-15 04:55] LABS: MODALITY NRB
[2016-12-15 05:17] LABS: BASO% 0.1 % (0.0-0.8); EOS# 0.15 X1000 (0.0-0.7); EOS% 1.2 % (0.0-10.0); HEMATOCRIT 46.3 % (42.0-52.0); HEMOGLOBIN 14.6 g/dL (14.0-18.0); IMM GRAN# 0.03 X1000 (0.0-0.04); IMM GRAN% 0.2 % (0.0-0.5); LYMPH# 1.06 X1000 (1.2-3.4); LYMPH% 8.8 % (20.5-51.1); MANUAL DIFF NEEDED? YES; MCH 27.9 PG (27-31); MCHC 31.5 g/dL (33-37); MCV 88.5 FL (81-99); MONO# 0.29 X1000 (0.11-0.59); MONO% 2.4 % (1.7-9.3); MPV 9.5 FL (7.4-10.4); NEUT% 87.3 % (42.2-75.2); PLT 357 X1000 (130-400); RBC 5.23 XMIL (4.7-6.1)
[2016-12-15] MEDS: PRILOSEC PO SCH (06:19)
[2016-12-15 06:52] LABS: CALCIUM 9.4 mg/dL (8.8-10.2)
[2016-12-15 08:14] LABS: BANDS 2 % (0-1); LYMPHS 10 % (21-51); MONO 4 % (1-9)
[2016-12-15] MEDS: ASPIRIN PO SCH (08:16)
[2016-12-15] MEDS: LOVENOX SUBQ SCH (08:17)
[2016-12-15] MEDS: PRINIVIL PO SCH (08:18)
[2016-12-15] MEDS: ADVAIR 250/50 DISKUS INH SCH ×2 (08:23→20:28)
--- NOTE | 2016-12-15 08:43 | PROGRESS NOTE ---
DATE: 12/15/2016 SUBJECTIVE: He says he is breathing better. He did not have to use the BiPAP as much. Seems to have better and easier air exchange. He states that the breathing treatments are making his heart rate up and make him very anxious. PHYSICAL EXAMINATION: General: His exam today, he is awake and alert. He has a face mask O2 on. Vital Signs: Temperature 97.9 degrees, pulse 108, respirations 35, blood pressure 86/61. HEENT: Pupils are equal and round. Lungs: Are clear in all lung baez. Cardiovascular Examination: Regular rhythm and rate without murmur or S3. Abdomen: Soft. Skin: Warm and dry. Is and Os: The urine output is 1500 mL. LAB: Reviewed from the . ABGs from yesterday reviewed. Echocardiogram was done yesterday, read by Dr. Medina. Technically difficult study. Mild mitral regurgitation, moderate pulmonary hypertension, mild concentric left ventricular hypertrophy. Estimated left ventricular ejection fraction of 80-85%. Doppler suggests grade 1 ventricular diastolic dysfunction, mild left atrial enlargement. ASSESSMENT AND PLAN: 1. Right-sided pneumonia with hilar adenopathy in the setting of cigarette smoking. Community- acquired pneumonia versus aspiration versus postobstructive pneumonia. Continue present antibiotics, breathing treatments, bronchodilators. 2. Chronic obstructive pulmonary disease. 3. Diastolic dysfunction. 4. History of cerebrovascular accident. 5. History rheumatoid arthritis. 6. Review of orders. I do not know that I see any change at this point. He is getting diuresed with Lasix 40 mg intravenous every 12 hours. He is on cefepime 1 g every 12 hours, Levaquin 750 mg intravenous daily, aspirin 81 mg a day. See if we can change his albuterol to Xopenex.
--- NOTE | 2016-12-15 11:46 | Diag Imaging Result Document ---
PROCEDURE NAME: CHEST-1 VIEW - 12/15/2016 PORTABLE CHEST X-RAY, 12/15/2016: COMPARISON: 12/14/2016. FINDINGS: Stable significant cardiomegaly. Lung volumes are lower. Otherwise, no change in the coarse pulmonary fibrosis and significant bilateral infiltrates. Pulmonary vascularity is also distended. IMPRESSION: Lower lung volumes. Otherwise, no change from prior.
[2016-12-15] MEDS: NS 1,000 ML IV PRN (12:42)
[2016-12-15] MEDS: KLONOPIN PO PRN (12:48)
[2016-12-15] MEDS: ZYVOX 600 MG/D5W 300 ML IV SCH ×2 (13:00→23:30)
[2016-12-15] MEDS: LEVAQUIN 750 MG/D5W 150 ML IV SCH (22:24)
[2016-12-16] MEDS: DUONEB (A & A) INH SCH ×6 (04:09→22:36)
[2016-12-16] MEDS: NS 1,000 ML IV PRN ×2 (04:44→19:46)
[2016-12-16 04:53] LABS: ALLEN TEST YES; BE 9.3 mmoll (-3.0-3.0); BLOOD TYPE ARTERIAL; DRAW SITE R RADIAL; METHB 1.5 % (0.0-1.5); MODALITY NRB; O2(CT) 19.8 mL/dL (15.0-23.0); PCO2(98.6) 49 mmHg (35-45); PO2(98.6) 107 mmHg (60-100); SAMPLE BLOOD; SAO2 99.6 % (95.0-100.0); THB 14.6 g/dL (11.5-17.4); pH(98.6) 7.46 (7.35-7.45)
[2016-12-16 05:12] LABS: MANUAL DIFF NEEDED? NO
[2016-12-16 05:27] LABS: BASO% 0.1 % (0.0-0.8); EOS# 0.61 X1000 (0.0-0.7); EOS% 5.3 % (0.0-10.0); HEMATOCRIT 43.6 % (42.0-52.0); HEMOGLOBIN 13.8 g/dL (14.0-18.0); IMM GRAN# 0.04 X1000 (0.0-0.04); IMM GRAN% 0.3 % (0.0-0.5); LYMPH# 0.76 X1000 (1.2-3.4); LYMPH% 6.6 % (20.5-51.1); MCH 28.1 PG (27-31); MCHC 31.7 g/dL (33-37); MCV 88.8 FL (81-99); MONO% 3.5 % (1.7-9.3); MPV 9.7 FL (7.4-10.4); NEUT% 84.2 % (42.2-75.2); PLT 280 X1000 (130-400); RBC 4.91 XMIL (4.7-6.1)
[2016-12-16] MEDS: PRILOSEC PO SCH (06:14)
[2016-12-16 06:15] LABS: AGAP 17; BUN 32 mg/dL (8-22); CALCIUM 8.9 mg/dL (8.8-10.2); CHLORIDE 92 mmol/L (98-107); COSMO 273; POTASSIUM 4.2 mmol/L (3.5-5.1); SODIUM 132 mmol/L (136-145); TCO2 23 mmol/L (25-35)
[2016-12-16] MEDS: ADVAIR 250/50 DISKUS INH SCH ×2 (07:27→19:27)
[2016-12-16] MEDS: ASPIRIN PO SCH (08:24)
[2016-12-16] MEDS: LOVENOX SUBQ SCH (08:24)
[2016-12-16] MEDS: PRINIVIL PO SCH (08:25)
--- NOTE | 2016-12-16 09:19 | Diag Imaging Result Document ---
PROCEDURE NAME: CHEST-PORTABLE - 12/16/2016 SINGLE FRONTAL RADIOGRAPH OF THE CHEST: COMPARISON: 12/15/2016. FINDINGS: The mixture of pulmonary fibrosis and dense bilateral infiltrates throughout both lungs with a basilar predominance is essentially stable. No new consolidations are identified. Cardiac silhouette is stable. IMPRESSION: Stable chest.
--- NOTE | 2016-12-16 10:20 | PROGRESS NOTE ---
DATE: 12/16/2016 SUBJECTIVE: Mr. Michele is breathing better. He is on a non-rebreather. He does feel better. He is more awake and alert. OBJECTIVE: Vital signs: Temperature 97.2 degrees. Remains afebrile. Pulse 100, respirations 26, blood pressure between 86and 104 over 62-76. Neck: CVP less than 6 cm. Lungs: Clear in all lung baez. Cardiovascular: Regular rhythm and rate without murmur or S3. Intake and output: Good urine output, 2300 mL. LAB: White count 11,480, hematocrit 43, platelet count 280,000. Sodium 132, potassium 4.2, chloride 92, BUN 32, creatinine 0.9. ProBNP 2,513 on the 24th. Chest x-ray: Stable chest. Mixture of pulmonary fibrosis and dense bilateral infiltrates throughout both lungs. Bibasilar predominance, essentially stable. Suspect pneumonia. Underlying fibrosis and COPD. ASSESSMENT AND PLAN/REVIEW OF ORDERS: I do not see anything different. He is on linezolid 600 mg IV q.12 hours, cefepime 1 g q.12 hours, fluticasone 1 puff b.i.d., Prilosec 40 mg a day. We will stop the Levaquin. On Prinivil 20 mg a day, Lovenox 40 mg subcutaneous daily, aspirin 81 mg a day. Getting normal saline at 75 mL an hour.
[2016-12-16] MEDS: MAXIPIME 1 GM/NS 50 ML IV SCH (12:17)
[2016-12-16] MEDS: ZYVOX 600 MG/D5W 300 ML IV SCH (12:18)
[2016-12-17] MEDS: ZYVOX 600 MG/D5W 300 ML IV SCH ×2 (02:00→12:52)
[2016-12-17] MEDS: DUONEB (A & A) INH SCH ×6 (04:00→23:12)
[2016-12-17 04:47] LABS: MANUAL DIFF NEEDED? NO
[2016-12-17 04:48] LABS: ALLEN TEST YES; BE 4.8 mmoll (-3.0-3.0); BLOOD TYPE ARTERIAL; DRAW SITE R RADIAL; METHB 1.4 % (0.0-1.5); PCO2(98.6) 48 mmHg (35-45); PO2(98.6) 90 mmHg (60-100); SAMPLE BLOOD; SAO2 99.1 % (95.0-100.0); THB 13.4 g/dL (11.5-17.4); pH(98.6) 7.41 (7.35-7.45)
[2016-12-17 04:49] LABS: BASO% 0.1 % (0.0-0.8); EOS# 0.48 X1000 (0.0-0.7); EOS% 4.2 % (0.0-10.0); HEMATOCRIT 41.5 % (42.0-52.0); HEMOGLOBIN 13.1 g/dL (14.0-18.0); IMM GRAN# 0.05 X1000 (0.0-0.04); IMM GRAN% 0.4 % (0.0-0.5); LYMPH# 0.61 X1000 (1.2-3.4); LYMPH% 5.3 % (20.5-51.1); MCH 28.1 PG (27-31); MCHC 31.6 g/dL (33-37); MCV 88.9 FL (81-99); MONO% 5.2 % (1.7-9.3); MPV 9.6 FL (7.4-10.4); NEUT% 84.8 % (42.2-75.2); PLT 243 X1000 (130-400); RBC 4.67 XMIL (4.7-6.1)
[2016-12-17 04:50] LABS: MODALITY PRB
[2016-12-17] MEDS: PRILOSEC PO SCH (06:33)
[2016-12-17] MEDS: ADVAIR 250/50 DISKUS INH SCH ×2 (07:22→19:58)
[2016-12-17] MEDS: PRINIVIL PO SCH (08:33)
[2016-12-17] MEDS: LOVENOX SUBQ SCH (08:33)
[2016-12-17] MEDS: ASPIRIN PO SCH (08:33)
--- NOTE | 2016-12-17 09:09 | Diag Imaging Result Document ---
PROCEDURE NAME: CHEST-PORTABLE - 12/17/2016 AP PORTABLE CHEST: TIME: 0500 hours. FINDINGS: There are coarse and dense opacities over both lungs, particularly peripherally. This appearance has not changed significantly since 12/16/2016. Considering differences in inspiration there has been very little change since 12/09/2016 although the right lower lobe laterally is slightly more opacified. The appearance of the chest is only slightly worse than on 07/04/2015. IMPRESSION: Pulmonary fibrosis possibly exacerbated by pneumonia or pulmonary edema. Essentially stable since 12/16/2016.
--- NOTE | 2016-12-17 10:26 | PROGRESS NOTE ---
DATE: 12/17/2016 SUBJECTIVE: Mr. Michele is on a nonrebreather. He feels like he is breathing a little better. He is eating very little, still complains that his mouth is a little dry. Family is at the bedside. Discussed with them the plan of care. OBJECTIVE: Vital signs: Temp 98.1, pulse 106, respirations 36, blood pressure 130/77. HEENT: Pupils are equal and round. Neck: CVP less than 6 cm. Lungs: Clear in all lung baez. Cardiovascular: Regular rhythm and rate without murmur or S3. Urine output was a little over 2 L. LAB: White count 11,520, hematocrit 41, platelet count 243,000. Chemistry: Sodium 132, potassium 4.2, chloride 92, BUN 32, creatinine 0.9, blood sugar 108, 125, 127. Chest x-ray from this morning: Pulmonary fibrosis possibly exacerbated by pneumonia, pulmonary edema. Essentially stable since 12/16. Breathing seems to have improved. Echocardiogram done on 12/14/2016: Technically difficult study. Mild mitral regurgitation, moderate pulmonary hypertension, mild concentric LVH with estimated left ventricular ejection fraction 60% to 65%. ASSESSMENT AND PLAN: 1. Pulmonary fibrosis, treating for bilateral pneumonia. Chest x-ray is fairly stable. Still O2 dependent. He presented with what looked like a right-sided pneumonia, hilar adenopathy. Clinically, appears to be doing better. 2. Chronic obstructive pulmonary disease, pulmonary fibrosis. 3. Diastolic dysfunction, good left ventricular systolic function. 4. History of cerebrovascular accident in the past. 5. Rheumatoid arthritis. I am going to ask Pulmonary to get involved. He may need long-term O2, and we may need to address the pulmonary fibrosis, so will ask them to get involved as well.
[2016-12-17] MEDS: MAXIPIME 1 GM/NS 50 ML IV SCH ×2 (11:42)
[2016-12-17] MEDS: NS 1,000 ML IV PRN (11:44)
[2016-12-17] MEDS: KLONOPIN PO PRN (18:02)
[2016-12-17] MEDS: SOLU-MEDROL IV SCH ×2 (18:02→23:48)
[2016-12-17] MEDS: ATIVAN IV PRN ×2 (19:01→22:36)
[2016-12-17] MEDS: MORPHINE IV PRN ×3 (19:13→23:48)
[2016-12-17] MEDS ORDERED: HALDOL IM PRN (19:36)
[2016-12-17] MEDS ORDERED: LASIX ONE (19:36)
[2016-12-17] MEDS ORDERED: LASIX IV ONE (19:37)
[2016-12-17] MEDS: LEVOPHED 8 MG in D5 1/2 NS 250 ML IV SCH (23:37)
[2016-12-17] MEDS ORDERED: DURAGESIC 25 MICROGM/HR PATCH TD ONE (23:38)
[2016-12-18] MEDS: MAXIPIME 1 GM/NS 50 ML IV SCH ×3 (00:03→23:46)
[2016-12-18] MEDS: ZYVOX 600 MG/D5W 300 ML IV SCH ×3 (00:04→23:49)
[2016-12-18] MEDS: MORPHINE IV PRN ×8 (01:51→23:08)
[2016-12-18] MEDS: DUONEB (A & A) INH SCH ×6 (03:38→22:45)
[2016-12-18 04:50] LABS: ALLEN TEST YES; BE -6.5 mmoll (-3.0-3.0); BLOOD TYPE ARTERIAL; DRAW SITE R RADIAL; METHB 1.3 % (0.0-1.5); O2(CT) 21.2 mL/dL (15.0-23.0); PO2(98.6) 114 mmHg (60-100); SAMPLE BLOOD; SAO2 99.6 % (95.0-100.0); THB 15.6 g/dL (11.5-17.4); TVOL 600 mL
[2016-12-18 04:52] LABS: MODALITY BI PAP; PCO2(98.6) 69 mmHg (35-45); pH(98.6) 7.15 (7.35-7.45)
[2016-12-18] MEDS: SOLU-MEDROL IV SCH ×4 (06:05→22:39)
[2016-12-18] MEDS: PRILOSEC PO SCH (06:07)
[2016-12-18] MEDS: ASPIRIN PO SCH (08:28)
[2016-12-18] MEDS: PRINIVIL PO SCH (08:29)
[2016-12-18] MEDS: LOVENOX SUBQ SCH (08:30)
[2016-12-18] MEDS: ADVAIR 250/50 DISKUS INH SCH ×2 (08:33→19:28)
--- NOTE | 2016-12-18 10:44 | PROGRESS NOTE ---
DATE: 12/18/2016 SUBJECTIVE: His blood pressure dropped some yesterday. Struggling more to breathe. Family aware, do not want him on a ventilator. He was made a no code level 2. LABORATORY DATA: Blood gas this morning, pH was 7.15, pCO2 69, PO2 114, saturations 99%. His rheumatoid factor was greater than 650. We are still waiting on NOREEN. His cyclic citrullinated peptide which was greater than 250. NOREEN screen was positive. Double-stranded DNA was only 31. His other values, chromatin, [place]n, LIVING COACH, SSA, and SSB, Amarilys-1 were less than 0.2. Centromere was 0.5. PHYSICAL EXAMINATION: Vital Signs: Today, temperature 97 degrees, pulse 110, respirations 22, blood pressure 86/62. Lungs: With diminished breath sounds at both bases. Some dry crackles appreciated throughout the lung baez, especially in the lower lung baez. Cardiovascular Examination: Regular rhythm and rate without murmur or S3. Abdomen: Soft. Skin: Warm and dry. Is and Os: Urine output was 1200 mL. LAB DATA: Reviewed from yesterday. ASSESSMENT AND PLAN: 1. Pulmonary fibrosis, treating for the bilateral pneumonia as well on top with suspected fibrosis related to rheumatoid arthritis. Continue steroids. 2. Chronic obstructive pulmonary disease with pulmonary fibrosis. 3. Diastolic dysfunction. We have no choice but to give him a little bit of volume. Watch his blood pressure. 4. History of cerebrovascular accident in the past. 5. Rheumatoid arthritis. 6. No present orders. He has norepinephrine going right now. Methylprednisone 60 mg intravenous every 6, linezolid 600 mg intravenous every 12, cefepime 1 g every 12 hours, fluticasone, salmeterol 1 puff twice a day, Prilosec 40 mg a day, Prinivil 40 mg a day. Blood pressure is hovering systolic in the 80s.
[2016-12-18] MEDS: LEVOPHED 8 MG in D5 1/2 NS 250 ML IV SCH ×2 (13:37→22:09)
--- NOTE | 2016-12-18 13:54 | PALLIATIVE CARE CONSULTATION ---
DATE: 12/18/2016 REQUESTING PHYSICIAN: Dr. Gregg. REASON FOR CONSULTATION: Goals of care. HISTORY OF PRESENT ILLNESS: This is a 66-year-old, male with a past medical history of hypertension, CVA, hyperlipidemia, rheumatoid arthritis and continued nicotine use, who was most recently admitted on 12/09/2016 after presenting to the emergency room with complaints of progressive shortness of breath and a 2-week history of nonproductive cough. It was also reported that he had an unintentional weight loss of 25 pounds within the last 3 months, along with complaints of fatigue. While in the ED, chest x-ray revealed diffuse interstitial markings that likely represented a combination of pulmonary fibrosis and pneumonia. He was also found to have a D-dimer of 20. However, further evaluation did not reveal pulmonary emboli or DVT. He was admitted for further evaluation and treatment and eventually transferred to the [facility] for ICU placement and pulmonary consult. Currently he remains in the ICU on 100% BiPAP. He is requiring medications for comfort every 2 hours. His sister is at the bedside. The palliative care team has been consulted to assist with goals of care. REVIEW OF SYSTEMS: Unable to review. PAST MEDICAL HISTORY: See HPI. PAST SURGICAL HISTORY: None. SOCIAL HISTORY: Prior to this admission, he lived at home and cared for his 87-year-old mother. He was a tobacco user. Alcohol and drug use have been denied. He is retired from [employer]. PHYSICAL EXAM: General: This is a 66-year-old, male, who does not appear to be in any acute distress. HEENT: Atraumatic, normocephalic. Neck: Supple. Cardiovascular: Increased rate. Regular rhythm. Pulmonary: Lung sounds are diminished with crackles auscultated bilaterally. Abdomen: Soft. Skin: He does have mottling to bilateral lower extremities. Extremities: Bilateral lower extremities are cool to the knee. IMPRESSION: This is a 66-year-old male with a past medical history as listed above in the history of present illness. I met with the patient's sister to discuss Mr. Michele's current state of health and goals of care. Currently Mr. Michele is a DNR level 2, allowing advanced cardiac life support medications only. Mr. Michele's sister states that she understands that he is dying and wants him to be comfortable. Currently he is receiving morphine every 2 hours, and this appears to be very effective. The and dying process was explained and questions were answered. It appears that Mr. Michele's palliative performance scale is 10%. Once again, he does not appear to be uncomfortable at this time. The palliative care team will continue to follow. Thank you for this consultation. Dictated by JACKIE Pineda for Raghav Hung MD
[2016-12-18] MEDS: ATIVAN IV PRN (17:57)
[2016-12-19] MEDS: MORPHINE IV PRN ×4 (01:29→14:07)
[2016-12-19 04:44] LABS: ALLEN TEST YES; BE -8.3 mmoll (-3.0-3.0); BLOOD TYPE ARTERIAL; DRAW SITE R RADIAL; METHB 1.6 % (0.0-1.5); O2(CT) 25.2 mL/dL (15.0-23.0); PO2(98.6) 172 mmHg (60-100); SAMPLE BLOOD; SAO2 99.7 % (95.0-100.0); SRATE 20 BPM; THB 18.3 g/dL (11.5-17.4); TVOL 650 mL
[2016-12-19 04:45] LABS: MODALITY BI PAP; PCO2(98.6) 66 mmHg (35-45); pH(98.6) 7.14 (7.35-7.45)
[2016-12-19] MEDS: SOLU-MEDROL IV SCH ×3 (05:29→16:38)
[2016-12-19] MEDS: LEVOPHED 8 MG in D5 1/2 NS 250 ML IV SCH ×4 (05:30→23:24)
[2016-12-19 05:34] LABS: HEMATOCRIT 45.5 % (42.0-52.0); MCH 28.4 PG (27-31); MCHC 30.8 g/dL (33-37); MCV 92.3 FL (81-99); MPV 10.6 FL (7.4-10.4); PLT 192 X1000 (130-400); RBC 4.93 XMIL (4.7-6.1)
[2016-12-19] MEDS: ATIVAN IV PRN ×2 (05:41→15:44)
[2016-12-19 05:49] LABS: ALBUMIN 2.1 g/dL (3.5-5.0); CALCIUM 7.9 mg/dL (8.8-10.2); MAGNESIUM 2.7 mg/dL (1.5-2.7); POTASSIUM 5.8 mmol/L (3.5-5.1); TOTAL BILIRUBIN 0.58 mg/dL (0.20-1.00); TOTAL PROTEIN 6.2 g/dL (6.3-8.3)
[2016-12-19 05:54] LABS: LYMPHS 4 % (21-51)
[2016-12-19] MEDS: PRILOSEC PO SCH (06:22)
[2016-12-19] MEDS: NS 1,000 ML IV SCH ×2 (06:29→16:12)
--- NOTE | 2016-12-19 07:49 | Diag Imaging Result Document ---
PROCEDURE NAME: CHEST-PORTABLE - 12/19/2016 SINGLE FRONTAL RADIOGRAPH OF THE CHEST: COMPARISON: 12/17/2016. FINDINGS: Inspiration is suboptimal. Patchy dense opacities throughout both lungs are essentially stable compatible with known pulmonary fibrosis. Superimposed airspace infiltrates would be difficult to completely exclude. No new consolidation is identified, however. There is stable cardiomegaly. IMPRESSION: Stable chest.
[2016-12-19] MEDS: ASPIRIN PO SCH (08:14)
[2016-12-19] MEDS: PRINIVIL PO SCH (08:14)
[2016-12-19] MEDS: ADVAIR 250/50 DISKUS INH SCH ×2 (08:46→19:53)
[2016-12-19] MEDS: DUONEB (A & A) INH SCH ×5 (08:46→22:51)
[2016-12-19] MEDS: LOVENOX SUBQ SCH (08:54)
--- NOTE | 2016-12-19 09:24 | PROGRESS NOTE ---
DATE: 12/19/2016 SUBJECTIVE: He is on BiPAP. He has remained fairly unresponsive most of the night. He is still at times pretty restless. OBJECTIVE: Vital Signs: Afebrile. The temperature is 97.8, pulse is 117, respirations are 29, and blood pressure is 91/60. Neck: CVP less than 6 cm. Lungs: Decreased breath sounds at both bases. Dry crackles in the lower lung baez. Abdomen: Soft. Skin: Warm and dry. Cardiovascular: Regular rhythm and rate. Urine output about 600 mL or greater. LABORATORY DATA: White blood cell count has gone up to 34,990. Hematocrit is 45. The platelet count is 192,000. Sodium 135, potassium 5.8, bicarb 21, BUN 69, and creatinine 3.8. ASSESSMENT AND PLAN: 1. Pulmonary fibrosis, treated for bilateral pneumonia as well. He is on steroids. This could explain his elevation in the white blood cell count. However, the blood pressure has dropped and he is less responsive. 2. Chronic obstructive pulmonary disease in the face of pulmonary fibrosis. 3. Diastolic dysfunction. 4. Acute renal failure. The creatinine is going up. Still making some urine. 5. History of rheumatoid arthritis. On review of his orders, he is on methylprednisone 60 mg intravenous q.6 h., linezolid 600 mg intravenous every 12, cefepime 1 g every 12 hours. I think we do not have any choice but to give him a little more fluids and try and improve his renal function.
[2016-12-19] MEDS: MAXIPIME 1 GM/NS 50 ML IV SCH (11:53)
[2016-12-19] MEDS: ZYVOX 600 MG/D5W 300 ML IV SCH (13:05)
--- NOTE | 2016-12-19 16:10 | PALLIATIVE CARE PROGRESS NOTE ---
DATE: 12/19/2016 SUBJECTIVE: Mr. Michele is unresponsive. He remains on 100% BiPAP. He does appear comfortable. OBJECTIVE: General: This is a 66-year-old, male who is unresponsive, but does not appear to be in any acute distress. HEENT: Atraumatic, normocephalic. Neck: Supple. Pulmonary: Lung sounds are diminished with crackles auscultated to bilateral lung baez. Abdomen: Soft. Cardiovascular: Increased rate. Extremities: Lower extremities reveal mottling and are cool to touch. Upper extremity edema noted. ASSESSMENT/PLAN: I met with Mr. Michele's sister and mother. They had questions regarding the dying process. We also further discussed his current code status of Do Not Resuscitate level 2 with advanced cardiac life support medications only. The family has decided that they would only vasopressor medications and an order will be placed to specify that. As previously mentioned, Mr. Michele appears comfortable at this time. The Palliative Care Team will continue to follow. Dictated by JACKIE Pineda for Raghav Hung MD
[2016-12-20] MEDS: SOLU-MEDROL IV SCH ×4 (00:27→18:27)
[2016-12-20] MEDS: MAXIPIME 1 GM/NS 50 ML IV SCH ×2 (00:28→12:00)
[2016-12-20] MEDS: ZYVOX 600 MG/D5W 300 ML IV SCH ×2 (00:30→15:13)
[2016-12-20] MEDS: NS 1,000 ML IV SCH ×2 (04:53→12:15)
[2016-12-20 05:45] LABS: BASO% 0.1 % (0.0-0.8); HEMATOCRIT 43.7 % (42.0-52.0); HEMOGLOBIN 13.4 g/dL (14.0-18.0); IMM GRAN# 0.18 X1000 (0.0-0.04); IMM GRAN% 0.5 % (0.0-0.5); LYMPH% 1.4 % (20.5-51.1); MANUAL DIFF NEEDED? YES; MCH 28.2 PG (27-31); MCHC 30.7 g/dL (33-37); MONO# 0.74 X1000 (0.11-0.59); MONO% 2.1 % (1.7-9.3); MPV 10.7 FL (7.4-10.4); NEUT% 95.9 % (42.2-75.2); PLT 166 X1000 (130-400); RBC 4.75 XMIL (4.7-6.1)
[2016-12-20 05:54] LABS: BANDS 6 % (0-1); LYMPHS 2 % (21-51); MONO 4 % (1-9)
[2016-12-20] MEDS: PRILOSEC PO SCH (06:48)
[2016-12-20 07:09] LABS: CALCIUM 7.7 mg/dL (8.8-10.2); MAGNESIUM 2.8 mg/dL (1.5-2.7)
[2016-12-20] MEDS: LEVOPHED 8 MG in D5 1/2 NS 250 ML IV SCH ×2 (07:11→16:19)
[2016-12-20] MEDS: ADVAIR 250/50 DISKUS INH SCH ×2 (07:27→19:15)
[2016-12-20] MEDS: DUONEB (A & A) INH SCH ×6 (07:27→23:06)
[2016-12-20 07:32] LABS: POTASSIUM 6.2 mmol/L (3.5-5.1)
[2016-12-20] MEDS: PRINIVIL PO SCH (08:14)
[2016-12-20] MEDS: ASPIRIN PO SCH (08:14)
--- NOTE | 2016-12-20 08:30 | PROGRESS NOTE ---
DATE: 12/20/2016 SUBJECTIVE: He has some tachypnea, seems to be a little more effort. He did have . Potassium was above 6 this morning. OBJECTIVE: Vital signs: Temperature 98.3 degrees, pulse 114, respirations 25, blood pressure 96/63. Neck: CVP less than 6 cm. Lungs: Clear in all lung baez. Dry crackles in the lower bases. Abdomen: Soft. Skin: Warm and dry. Intake and output: Urine output was 2 L. LAB: Reviewed. White count 34,580, unchanged, hematocrit 43, platelet count 166,000. Chemistry: Sodium 137, potassium 6.2, chloride 97, BUN 98, creatinine 5.6. Note that renal function is deteriorating. I am going to give an amp of bicarb, an amp of D50, and 10 insulin. Note that liver enzymes were climbing up too. His AST above 2,000 and ALT above 2,000. ASSESSMENT AND PLAN: Patient with underlying pulmonary fibrosis. He is a do not resuscitate level 2. We will give him some treatment to try and get his potassium down. His liver enzymes were advancing. Prognosis is poor. Continue his Solu-Medrol. He has underlying rheumatoid arthritis.
[2016-12-20] MEDS: LOVENOX SUBQ SCH (08:44)
--- NOTE | 2016-12-20 14:52 | PALLIATIVE CARE PROGRESS NOTE ---
DATE: 12/20/2016 SUBJECTIVE: Mr. Michele is unresponsive. He remains on 100% BiPAP. He does appear comfortable at this time. OBJECTIVE: General: This is a 66-year-old, male who is unresponsive and does not appear to be in any acute distress. HEENT: Atraumatic, normocephalic. Cardiovascular: Increased rate. Pulmonary: Lung sounds are diminished. Crackles auscultated to bilateral lung bases. EXTREMITIES: Mottling appears worse to bilateral lower extremities. Extremities are cool to touch. Upper extremity edema noted. ASSESSMENT AND PLAN: Mr. Michele's sister and mother are at the bedside. The sister states that she feels like he has declined since yesterday. His code status remains Do Not Resuscitate level 2 with pressor support only. The Palliative Care Team will continue to follow. Dictated by JACKIE Pineda for Raghav Hung MD cc: JACKIE Pineda MD
[2016-12-20] MEDS: ATIVAN IV PRN (15:12)
[2016-12-20] MEDS: MORPHINE IV PRN (19:28)
[2016-12-21] MEDS: ZYVOX 600 MG/D5W 300 ML IV SCH ×2 (00:30→11:45)
[2016-12-21] MEDS: MORPHINE IV PRN ×3 (01:15→20:40)
[2016-12-21] MEDS: DUONEB (A & A) INH SCH ×6 (03:20→22:25)
[2016-12-21] MEDS: LEVOPHED 8 MG in D5 1/2 NS 250 ML IV SCH ×3 (04:00→22:10)
[2016-12-21] MEDS: SOLU-MEDROL IV SCH ×5 (05:30→23:43)
[2016-12-21] MEDS: NS 1,000 ML IV SCH ×3 (05:30→17:56)
[2016-12-21] MEDS: ADVAIR 250/50 DISKUS INH SCH ×2 (07:35→22:24)
[2016-12-21] MEDS: ATIVAN IV PRN (08:00)
[2016-12-21] MEDS: LOVENOX SUBQ SCH (08:00)
[2016-12-21] MEDS: MAXIPIME 1 GM/NS 50 ML IV SCH ×2 (11:45)
--- NOTE | 2016-12-21 14:19 | PROGRESS NOTE ---
DATE: 12/21/2016 OBJECTIVE: Mr. Michele is working to breathe. He is unresponsive, using thoracic muscles for breathing. He is on BiPAP. Liver functions have gone up. He is in renal failure. ASSESSMENT AND PLAN: I told them it is a very dismal prognosis, will keep him comfortable, but do not expect he will survive. cc: Moisés Gregg MD
[2016-12-21] MEDS: ASPIRIN PO SCH (17:51)
[2016-12-21] MEDS: PRINIVIL PO SCH (17:51)
[2016-12-21] MEDS: PRILOSEC PO SCH (17:52)
[2016-12-22] MEDS: MAXIPIME 1 GM/NS 50 ML IV SCH (00:48)
[2016-12-22] MEDS ORDERED: NEO-SYNEPHRINE 50 MG in NS 250 ML IV SCH ×2 (01:00→02:00)
[2016-12-22 01:08] VITALS: BP 89/53
[2016-12-22] MEDS ORDERED: DUONEB (A & A) INH PRN (01:09)
--- NOTE | 2016-12-22 20:07 | DISCHARGE SUMMARY ---
ADMISSION DATE: 12/09/2016 DISCHARGE DATE: 12/22/2016 SUMMARY: Patient was admitted on 12/11/2016. Transferred here from [place] with respiratory dysfunction. 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 Not sure if it was from rheumatoid arthritis or some other process. Underlying severe COPD. He continued to require BiPAP. He developed both hepatic dysfunction and renal dysfunction. Family did not want to intubate. He became less responsive, and family wanted to give comfort measures. No code. He on 12/22/2016. This was, I think, at 2:23 a.m. on the morning of 12/22/2016. cc: Moisés Gregg MD
[2016-12-23 10:46] LABS: PO2(98.6) 39 mmHg (60-100)
== END 2016-12-22 02:23 | disposition expired ==
LOC: P.ED 18:35 → P.MEDSURG 18:36 → ICU 12-13 19:55
PROVIDERS: ATTEND Emergency Medicine